=== PATIENT | male | born 1950 | race Caucasian/White ===

== ENCOUNTER 2016-11-15 08:48 | Day surgery (SDC) | payer OTHER ==
[~2016-11-15] VITALS: Ht 179.1 cm; Wt 88.6 kg
[2016-11-15] MEDS ORDERED: LISI10TA3 PO (09:10)
[2016-11-15] MEDS ORDERED: FENO160T PO (09:10)
[2016-11-15] MEDS ORDERED: HYDR500C2 PO (09:10)
[2016-11-15 09:23] VITALS: PULSE 66; RESP 20; TEMP 97.7; O2SAT 96
[2016-11-15 09:48] LABS: AUTOMATED NEUTROPHIL # 3.7 TH/MM3 (1.8-7.7); BASOPHIL # 0.1 TH/MM3 (0-0.2); BASOPHIL % 2.5 % (0.0-2.0); HEMATOCRIT 24.2 % (39.0-51.0); LYMPH % 11.1 % (9.0-44.0); LYMPHOCYTE # 0.6 TH/MM3 (1.0-4.8); MEAN CELL VOLUME 102.4 FL (80.0-100.0); MEAN CORPUSCULAR HEMOGLOBIN 34.3 PG (27.0-34.0); MEAN CORPUSCULAR HGB CONC 33.5 % (32.0-36.0); MONO % 10.8 % (0.0-8.0); NEUT % 74.6 % (16.0-70.0); PLATELET COUNT 747 TH/MM3 (150-450); RED BLOOD COUNT 2.36 MIL/MM3 (4.50-5.90); RED CELL DISTRIBUTION WIDTH 28.5 % (11.6-17.2)
[2016-11-15 09:49] LABS: HEMO FLAGS AUTO DIFF
[2016-11-15 09:57] LABS: APTT (PATIENT) 30.1 SEC (24.3-30.1); INTERNATIONAL NORMALIZED RATIO 1.2 RATIO
[2016-11-15] MEDS ORDERED: LIDOCAINE 1%/EPINEPHrine 1:100,000 SOLN 20 ML VIAL ONE (10:11)
[2016-11-15] MEDS ORDERED: SODIUM CHLOR 0.9% 1000 ML IV SCH (10:15)
[2016-11-15 10:17] LABS: BANDS 6 % (0-6); BASOPHILS 3 % (0-2); CORRECTED NUCLEATED RBC 1 /100 WBC (0-0); METAMYELOCYTES 1 % (0-1); MYELOCYTES 1 % (0-0); PLATELET ESTIMATE SMEAR HIGH (NORMAL); PLATELET MORPHOLOGY NORMAL (NORMAL); POLYS (SEG NEUTROPHILS) 71 % (16-70); SCAN/DIFF FINAL DIFF MANUAL; WBC DIFF SAMPLE 100
[2016-11-15 10:18] LABS: TEARDROP RBCS 1+ (NORMAL)
[2016-11-15] MEDS ORDERED: fentaNYL CITRATE 250 MCG/5 ML AMP ONE (10:25)
[2016-11-15] MEDS ORDERED: MIDAZOLAM HCL 5 MG/5 ML VIAL ONE (10:25)
[2016-11-15 11:15] VITALS: BP 129/51; PULSE 67; RESP 18; TEMP 97.8; O2SAT 97
[2016-11-15 11:30] VITALS: BP 128/64; PULSE 61; RESP 18; O2SAT 95
--- NOTE | 2016-11-15 11:39 | PD.RAD ---
Post CT Procedure Prog Note Pre Procedure Diagnosis: (1) Myelodysplasia (myelodysplastic syndrome) Post Procedure Diagnosis: (1) Myelodysplasia (myelodysplastic syndrome) Procedure Date: Nov 15, 2016 Supervising Radiologist: Genaro Butts Proceduralist/Assist: RT Paul(R)(CT) Anesthesia: Conscious Sedation Plan of Activity Patient to Unit: [facility] Patient Condition: Good See PACS Report for procedural detail/treatment Biopsy Biopsy Procedure: Bone Marrow Specimen: Core Biopsy Genaro Butts MD Nov 15, 2016 11:39
[2016-11-15 11:40] LABS: BONE MARROW PROCESSING COMPLETE; IRON STAIN DONE; JENNER GIEMSA STAIN DONE
[2016-11-15 12:00] VITALS: BP 113/60; PULSE 65; RESP 18; O2SAT 95
[2016-11-15] MEDS ORDERED: oxyCODONE/ACETAMINOPHEN 5 MG/325 MG TAB PO PRN (12:15)
[2016-11-15 12:30] VITALS: BP 114/53; PULSE 65; RESP 18; O2SAT 97
--- NOTE | 2016-11-15 13:29 | RADRPT ---
EXAM DATE/TIME: 11/15/2016 10:35 [facility] COMPARISON: No previous studies available for comparison. INDICATIONS : Myeloproliferative disorder with thrombocytosis. SEDATION TIME: 15 minutes BIOPSY SITE: Left ilium MEDICATION(S): 1.) 3 mg midazolam (Versed) IV 2.) 150 mcg fentanyl (Sublimaze) IV DEVICE(S): 1.) 11 gauge Bone marrow biopsy needle MEDICAL HISTORY : Hypertension. Kidney disease. Anemia. Myelofibrosis. SURGICAL HISTORY : None. ENCOUNTER: Initial ACUITY: 1 day PAIN SCORE: 0/10 LOCATION: Left A total of one core specimen(s) were obtained and sent to the laboratory for pathologic evaluation. PROCEDURE: 1. CT guided bone marrow biopsy. 2. Conscious sedation with continuous EKG and oximetry monitoring. 3. EKG and oximetry remained stable throughout the procedure. Prior to the procedure informed consent was obtained. Any appropriate prior imaging studies were rev iewed. Using automated exposure control and adjustment of the mA and/or kV according to patient size , radiation dose was kept as low as reasonably achievable to obtain optimal diagnostic quality images . The site was prepped in a sterile fashion. Full sterile technique was used, including cap, mask, melody rile gloves and gown and a large sterile sheet. Hand hygiene and 2% chlorhexidine and/or betadine/al cohol prep was utilized per protocol for cutaneous antisepsis. The skin and subcutaneous tissues wer e infiltrated with local anesthetic solution. With CT guidance the previously identified target was localized. Biopsy was performed using the presc ribed needle as above. Following biopsy marrow aspiration was performed with repeat puncture. Adequa te hemostasis was obtained with compression at the puncture site. Follow-up CT scan reveals no hemorrhage. Conscious sedation was performed with the prescribed dosages and duration as above in the presence of an independent trained radiology nurse to assist in the monitoring of the patient. EKG and oximetry remained stable throughout the procedure. The patient tolerated the procedure well and there were no complications. The patient was sent to Radiology Outpatient Unit in stable condition. CONCLUSION: 1. Uncomplicated CT guided bone marrow aspirate. 2. Uncomplicated CT guided bone marrow biopsy. Genaro Butts MD on November 15, 2016 at 13:27 Board Certified Radiologist. This report was verified electronically.
== END 2016-11-15 13:04 | disposition home or self-care (01) ==
LOC: HRAD 08:48 → HRIP 08:49 → HRAD 13:04
PROVIDERS: ATTEND Internal Medicine
DX: D46.9 Myelodysplastic syndrome, unspecified (principal); D47.1 Chronic myeloproliferative disease; D47.3 Essential (hemorrhagic) thrombocythemia; D53.9 Nutritional anemia, unspecified; D75.89 Other specified diseases of blood and blood-forming organs; I10 Essential (primary) hypertension
CPT/HCPCS: 38221; 77012; 85007; 85027; 85097; 85610; 85730; 88184; 88185; 88237; 88264; 88280; 88305; 88311; 88313; 99152; C1830; G0364; J2250; J3010

== ENCOUNTER 2017-03-17 08:02 | Day surgery (SDC) | payer OTHER, MEDICAID ==
[2017-03-17] VITALS (7 sets, daily range): BP systolic 106–141; BP diastolic 53–72; PULSE 57–63; RESP 16–18; TEMP 97.7–97.9; O2SAT 94–98
[~2017-03-17] VITALS: Ht 177.8 cm; Wt 88.0 kg
[~2017-03-17 08:02] MED LIST: FENO160T PO; HYDR500C2 PO; LISI10TA3 PO
[2017-03-17] MEDS ORDERED: HYDR500C PO (08:30)
[2017-03-17] MEDS ORDERED: SODIUM CHLORIDE 0.9% 1000 ML IV SCH (08:30)
[2017-03-17] MEDS ORDERED: CHLORHEXIDINE GLUCONATE 2 % 1 PACK (2 CLOTHS) TOPICAL SCH (08:30)
[2017-03-17] MEDS ORDERED: VANCOMYCIN 1000 MG/NS 250 ML - implanted port/tunneled catheter IV SCH ×2 (08:30)
[2017-03-17] MEDS ORDERED: ceFAZolin 2 GM PREMIX 50 ML - implanted port/tunneled catheter insertion IV SCH (08:30)
[2017-03-17] MEDS ORDERED: ASPI81TA19 (08:30)
[2017-03-17] MEDS ORDERED: POVIDONE IODINE 5% (ANTISEPSIS KIT) 4 APPLICATIONS EACH NARE SCH (08:30)
[2017-03-17 09:00] LABS: HEMATOCRIT 28.7 % (39.0-51.0)
[2017-03-17] MEDS ORDERED: MIDAZOLAM HCL 2 MG/2 ML VIAL ONE ×2 (09:45→09:46)
[2017-03-17] MEDS ORDERED: fentaNYL CITRATE 250 MCG/5 ML AMP ONE (09:46)
[2017-03-17] MEDS ORDERED: LIDOCAINE 1%/EPINEPHrine 1:100,000 SOLN 20 ML VIAL ONE (10:12)
--- NOTE | 2017-03-17 10:51 | PD.RAD ---
Post Procedure Progress Note Pre Procedure Diagnosis: (1) Myelodysplasia (myelodysplastic syndrome) Post Procedure Diagnosis: (1) Myelodysplasia (myelodysplastic syndrome) Procedure Date: Mar 17, 2017 Supervising Radiologist: Bernard South Proceduralist/Assist: Kasi Vasquez, RT(R), Supriya Burroughs RT(R) Anesthesia: Local, Conscious Sedation Plan of Activity Patient to Unit: [facility] Patient Condition: Good Additional Comments: Patent right IJ See PACS Report for procedural detail/treatment Bernard South MD Mar 17, 2017 10:51
--- NOTE | 2017-03-17 12:14 | RADRPT ---
EXAM DATE/TIME: 03/17/2017 10:15 [facility] COMPARISON: No previous studies available for comparison. INDICATIONS : Patient presents with chronic anemia and myeloproliferative disorder in need of port placement. MEDICAL HISTORY : HTN Renal disease Anemia Blood dyscrasias Splenomegly Myeloproliferative disorder SURGICAL HISTORY : Colonoscopy ENCOUNTER: Initial ACUITY: >1 year PAIN SCORE: 0/10 LOCATION: N/A FLUORO TIME: 0.3 minutes IMAGE SERIES: 0 SEDATION TIME: 15 minutes ACCESS: Right internal jugular vein SEDATION: 1.) 3 mg midazolam (Versed) IV 2.) 150 mcg fentanyl (Sublimaze) IV 3.) 2g cefazolin (Ancef) IV 4.) 1g Vancomycin IV Prophylactic antibiotics were administered with appropriate pre-procedure timing. Vancomycin within 2 hours of procedure, Ancef (or alternative) within 1 hour of procedure. DEVICE: 1. 8 Hungarian single lumen Smart port CT w/ vortex PROCEDURE : 1. Continuous pulse oximetry and EKG monitoring. 2. Intravenous conscious sedation. 3. Ultrasound guidance for venous access. 4. Fluoroscopic guided implantable central venous port placement. The patient was placed supine. The neck was prepped in sterile fashion. Full sterile technique was u sed, including cap, mask, sterile gloves and gown, and a large sterile sheet. Hand hygiene and 2% ch lorhexidine Betadine was utilized per protocol for cutaneous antisepsis with appropriate dry time for site. The skin and subcutaneous tissues were infiltrated with local anesthetic solution. Under direct ultrasound guidance, central venous access was accomplished in the targeted vessel. The ultrasound images depicting access guidance were stored and saved to PACS for permanent record. A s ubcutaneous pocket was created using blunt dissection. The port was introduced to the pocket. The c atheter tubing was fed through a subcutaneous tunnel to the venotomy site. The catheter tubing was c ut to a suitable length and then was introduced through a valved Peel-Away sheath and positioned with catheter tubing tip at the cavo-atrial junction level. The pocket incision was closed with subcutic ular Vicryl suture. Steri-Strips were applied. The port was flushed and locked with heparin solutio n per protocol. Sterile dressing was applied to the site. The patient tolerated the procedure well. Conscious sedation was performed with the prescribed dosages and duration as above in the presence of an independent trained radiology nurse to assist in the monitoring of the patient. EKG and oximetry remained stable throughout the procedure. The patient tolerated the procedure well and there were no complications. The patient was sent to post anesthesia recovery in stable condition. CONCLUSION: Uncomplicated ultrasound and fluoroscopic guided implanted central venous port catheter placement as described in detail above. An 8 Hungarian Power port was placed. Bernard South MD on March 17, 2017 at 12:12 Board Certified Radiologist. This report was verified electronically.
== END 2017-03-17 13:10 | disposition home or self-care (01) ==
LOC: HROP 08:02 → HRIP 08:05 → HROP 13:10
PROVIDERS: ATTEND Internal Medicine
DX: D46.9 Myelodysplastic syndrome, unspecified (principal); D53.9 Nutritional anemia, unspecified; I10 Essential (primary) hypertension; N28.9 Disorder of kidney and ureter, unspecified; R16.1 Splenomegaly, not elsewhere classified
CPT/HCPCS: 36561; 76937; 77001; 85014; 85018; 99152; C1788; C1894; J0690; J1642; J2250; J3010; J3370; J7030; J7050